=== PATIENT | female | born 1955 | race Caucasian/White ===

== ENCOUNTER 2021-11-28 07:18 | Outpatient (CLI) | payer MEDICARE, OTHER, SELFPAY | END 2021-11-28 07:19 | disposition home or self-care (01) | LOC: RAD 07:19 | PROVIDERS: PCP Family Medicine; Visit Provider Family Medicine | DX: M54.16 Radiculopathy, lumbar region (principal); M51.36 Other intervertebral disc degeneration, lumbar region | CPT/HCPCS: 64483; J0702; Q9966 ==

== ENCOUNTER 2022-01-26 10:33 | Day surgery (SDC) | payer MEDICARE, OTHER, SELFPAY ==
[2022-01-26] MEDS: KETOROLAC OPHTH 0.5% 1 DROP EYE-RIGHT ×2 (11:02→11:08)
[2022-01-26] MEDS: TETRACAINE 0.5% OPHTH 1 DROP EYE-RIGHT ×2 (11:02→11:08)
[2022-01-26 11:06] VITALS: BMI 24.1
[2022-01-26] MEDS: TETRACAINE 0.5% OPHTH 2 DROP EYE-RIGHT (11:17)
[2022-01-26] MEDS: BALANCED SALT IRRIG SOLN 15 ML EYE-RIGHT (11:17)
[2022-01-26] MEDS: SODIUM CHLORIDE 0.9 % (FLUSH) 10 ML SYRINGE IVF (11:35)
[2022-01-26 11:37] VITALS: BP 144/81; PULSE 82; RESP 16; TEMP 36.3; O2SAT 95
--- NOTE | 2022-01-26 11:42 | SUR.PREOP ---
The eye drops brought by the patient (Ketorolac and Prednisolone) are examined and I have determined they are labeled by the patient's pharmacy for this patient as prescribed by the surgeon. The bottles are intact, recently obtained and appear to be correct.
[2022-01-26 12:21] VITALS: PULSE 78; RESP 16; TEMP 36.6
--- NOTE | 2022-01-26 12:25 | W.ANESCHARGE ---
Anesthesia Charges Start Date/Time Anesthesia Start Date: 01/26/22 Anesthesia Start Time: 11:49 Stop Date/Time Anesthesia Stop Date: 01/26/22 Anesthesia Stop Time: 12:25 Summary Emergency: No
--- NOTE | 2022-01-26 12:28 | PM.PROC ---
Procedure Note Date Seen: 01/26/22 Will [facility] bill your pro fee for this procedure?: Yes Procedure Description: SURGEON: Jackie Suazo MD PREOPERATIVE DIAGNOSIS: Nuclear sclerotic cataract, right eye. POSTOPERATIVE DIAGNOSIS: Nuclear sclerotic cataract, right eye. NAME OF OPERATION: Phacoemulsification of cataract with posterior chamber intraocular lens implantation in the right eye. ANESTHESIA: Topical. ESTIMATED BLOOD LOSS: Less than 2 cc. COMPLICATIONS: None. PATHOLOGY SPECIMEN: None. INDICATIONS: See consult note for details. The risks, benefits and alternatives of the procedure were explained to the patient, who elected to proceed and signed informed consent to do so. PROCEDURE: The patient was brought to the pre-holding area where the right eye was identified as the operative eye. I placed my initials above this eye. The patient received eye drops consisting of 0.5% tetracaine, 1% tropicamide, 10% phenylephrine, and 0.5% ketorolac. The patient was then brought to the operating room where the right eye was again identified as the operative eye. The eye was prepped with Betadine and draped in the usual sterile ophthalmic fashion. A #15 super-sharp blade was used to create a paracentesis site. 1% non-preserved intracameral lidocaine was injected into the anterior chamber. Endocoat was injected into the anterior chamber. A 2.4 mm keratome was used to create a three-plane self-sealing incision 1 mm anterior to the temporal limbus. A cystotome was used to create an anterior capsular leaflet. The Utrata forceps were used to extend this to form a continuous curvilinear capsulorrhexis. Hydrodissection was performed. The cataract was removed with phacoemulsification using the tnbbgy-[id number]-mbaxzdl technique. The irrigation and aspiration tip was used to remove the remaining cortex. Healon was injected into the capsular bag. An TAQUERIA ZCB00 intraocular lens of 18.5 diopters was injected into the capsular bag. The irrigation and aspiration tip was used to remove the remaining viscoelastic. Balanced salt solution on a cannula was used to hydrate the wound, and the wound was found to be watertight. The pupil was noted to be round. DISPOSITION: The patient was taken to the recovery room and discharged to home in stable condition. The patient was instructed to call me or go to the emergency department with any sudden change, including dramatic loss of vision, severe pain in the eye or eyebrow region, nausea, or vomiting. The patient will follow up in the clinic tomorrow morning. Surgeon: Jackie Suazo MD
--- NOTE | 2022-01-26 12:40 | W.ANESCHARGE ---
Anesthesia Charges Start Date/Time Anesthesia Start Date: 01/26/22 Anesthesia Start Time: 11:49 Stop Date/Time Anesthesia Stop Date: 01/26/22 Anesthesia Stop Time: 12:25 Summary Emergency: No
== END 2022-01-26 13:00 | disposition home or self-care (01) ==
PROVIDERS: PCP Family Medicine; Visit Provider Ophthalmology
PROC: (CPT 66984; principal; 2022-01-26 11:00)
DX: H25.11 Age-related nuclear cataract, right eye (principal)
CPT/HCPCS: 66984; 00142; A9270; J2250; J3010; V2632

== ENCOUNTER 2022-02-07 10:21 | Day surgery (SDC) | payer MEDICARE, OTHER, SELFPAY ==
[2022-02-07 10:30] VITALS: BP 136/71; PULSE 85; RESP 16; TEMP 36.6; O2SAT 95; BMI 24.1
[2022-02-07] MEDS: KETOROLAC OPHTH 0.5% 1 DROP EYE-LEFT ×2 (10:45→10:54)
[2022-02-07] MEDS: TETRACAINE 0.5% OPHTH 1 DROP EYE-LEFT ×2 (10:45→10:55)
[2022-02-07] MEDS: SODIUM CHLORIDE 0.9 % (FLUSH) 10 ML SYRINGE IVF (10:55)
[2022-02-07] MEDS: ETHYL CHLORIDE 1 APPLICATION 1 APPLIC TOPICAL (10:55)
--- NOTE | 2022-02-07 11:11 | SUR.PREOP ---
1031: The eye drops brought by the patient (Ketorolac and Prednisolone) are examined and I have determined they are labeled by the patient's pharmacy for this patient as prescribed by the surgeon. The bottles are intact, recently obtained and appear to be correct.
[2022-02-07] MEDS: TETRACAINE 0.5% OPHTH 2 DROP EYE-LEFT (11:32)
[2022-02-07] MEDS: BALANCED SALT IRRIG SOLN 15 ML EYE-LEFT (11:36)
--- NOTE | 2022-02-07 12:00 | W.ANESCHARGE ---
Anesthesia Charges Start Date/Time Anesthesia Start Date: 02/07/22 Anesthesia Start Time: 11:28 Stop Date/Time Anesthesia Stop Date: 02/07/22 Anesthesia Stop Time: 12:00 Summary Emergency: No
[2022-02-07 12:06] VITALS: BP 140/79; PULSE 82; RESP 16; TEMP 36.1; O2SAT 93
--- NOTE | 2022-02-07 13:39 | PM.PROC ---
Procedure Note Date Seen: 02/07/22 Will [facility] bill your pro fee for this procedure?: Yes Procedure Description: SURGEON: Jackie Suazo MD PREOPERATIVE DIAGNOSIS: Nuclear sclerotic cataract, left eye. POSTOPERATIVE DIAGNOSIS: Nuclear sclerotic cataract, left eye. NAME OF OPERATION: Phacoemulsification of cataract with posterior chamber intraocular lens implantation in the left eye. ANESTHESIA: Topical. ESTIMATED BLOOD LOSS: Less than 2 cc. COMPLICATIONS: None. PATHOLOGY SPECIMEN: None. INDICATIONS: See consult note for details. The risks, benefits and alternatives of the procedure were explained to the patient, who elected to proceed and signed informed consent to do so. PROCEDURE: The patient was brought to the pre-holding area where the left eye was identified as the operative eye. I placed my initials above this eye. The patient received eye drops consisting of 0.5% tetracaine, 1% tropicamide, 10% phenylephrine, and 0.5% ketorolac. The patient was then brought to the operating room where the left eye was again identified as the operative eye. The eye was prepped with Betadine and draped in the usual sterile ophthalmic fashion. A #15 super-sharp blade was used to create a paracentesis site. 1% non-preserved intracameral lidocaine was injected into the anterior chamber. Endocoat was injected into the anterior chamber. A 2.4 mm keratome was used to create a three-plane self-sealing incision 1 mm anterior to the temporal limbus. A cystotome was used to create an anterior capsular leaflet. The Utrata forceps were used to extend this to form a continuous curvilinear capsulorrhexis. Hydrodissection was performed. The cataract was removed with phacoemulsification using the ekvbjn-yji-obpukvb technique. The irrigation and aspiration tip was used to remove the remaining cortex. Healon was injected into the capsular bag. An TAQUERIA ZCB00 intraocular lens of 19.5 diopters was injected into the capsular bag. The irrigation and aspiration tip was used to remove the remaining viscoelastic. Balanced salt solution on a cannula was used to hydrate the wound, and the wound was found to be watertight. The pupil was noted to be round. DISPOSITION: The patient was taken to the recovery room and discharged to home in stable condition. The patient was instructed to call me or go to the emergency department with any sudden change, including dramatic loss of vision, severe pain in the eye or eyebrow region, nausea, or vomiting. The patient will follow up in the clinic tomorrow morning. Surgeon: Jackie Suazo MD
== END 2022-02-07 12:15 | disposition home or self-care (01) ==
LOC: OR 10:22
PROVIDERS: PCP Family Medicine; Visit Provider Ophthalmology
PROC: (CPT 66984; principal; 2022-02-07 10:30)
DX: H25.12 Age-related nuclear cataract, left eye (principal)
CPT/HCPCS: 66984; 00142; A9270; J2250; J3010; V2632

== ENCOUNTER 2022-03-20 12:57 | Outpatient (CLI) | payer MEDICARE, OTHER, SELFPAY | END 2022-03-20 12:58 | disposition home or self-care (01) | LOC: INJ CL 12:57 | PROVIDERS: PCP Family Medicine; Visit Provider Family Medicine | DX: M54.16 Radiculopathy, lumbar region (principal); M51.36 Other intervertebral disc degeneration, lumbar region | CPT/HCPCS: 64483; J0702; Q9966 ==

== ENCOUNTER 2022-06-19 10:38 | Outpatient (CLI) | payer MEDICARE, OTHER, SELFPAY | END 2022-06-19 10:39 | disposition home or self-care (01) | PROVIDERS: PCP Family Medicine; Visit Provider Family Medicine | DX: M54.16 Radiculopathy, lumbar region (principal); M51.36 Other intervertebral disc degeneration, lumbar region | CPT/HCPCS: 64483; J0702; Q9966 ==

== ENCOUNTER 2022-07-25 10:04 | Day surgery (SDC) | payer MEDICARE, OTHER, SELFPAY ==
[2022-07-25 10:10] VITALS: BP 137/61; PULSE 86; RESP 18; TEMP 36.6; O2SAT 96; BMI 24.0
[2022-07-25] MEDS: SODIUM CHLORIDE 0.9 % (FLUSH) 10 ML SYRINGE IVF (10:10)
--- NOTE | 2022-07-25 10:54 | W.ANESCHARGE ---
Anesthesia Charges Start Date/Time Anesthesia Start Date: 07/25/22 Anesthesia Start Time: 11:43 Stop Date/Time Anesthesia Stop Date: 07/25/22 Anesthesia Stop Time: 12:58
[2022-07-25] MEDS: LACTATED RINGERS 1000 ML 1,000 ML 125 ML IV (11:30)
[2022-07-25] MEDS: TETRACAINE 0.5% OPHTH 2 DROP EYE-BOTH (11:45)
[2022-07-25] MEDS: BUPIVACAINE 0.5 %/EPI 1:200K 30 ML INJECTION (11:48)
[2022-07-25 12:55] VITALS: BP 132/82; PULSE 78; RESP 20; TEMP 36.1; O2SAT 98
--- NOTE | 2022-07-25 12:56 | W.PM.OPTPROC ---
Procedure Note Date of procedure: 07/25/22 Will [facility] bill your pro fee for this procedure?: Yes Procedure Description: SURGEON: Jackie Suazo MD PREOPERATIVE DIAGNOSIS: Dermatochalasis, bilateral upper eyelids. POSTOPERATIVE DIAGNOSIS: Dermatochalasis, bilateral upper eyelids. NAME OF OPERATION: Bilateral upper eyelid blepharoplasty. ANESTHESIA: Local monitored anesthesia care. ESTIMATED BLOOD LOSS: Less than 2 cc. COMPLICATIONS: None. IMPLANTS: None. INDICATIONS: The patient is seen today for bilateral upper eyelid blepharoplasty. The patient complains of upper eyelids interfering with vision. I reviewed the visual granado and facial photographs. Surgery was indicated for functional improvement of vision. The risks, benefits and alternatives were discussed pre-operatively. The risks included pain, infection, bleeding, poor cosmetic result, scarring, asymmetry, need for further treatment including surgery, inability to close lids, dry eyes, decreased vision, loss of vision and loss of eye. The benefits included improvement of symptoms. The alternative was observation and no surgery. All questions were answered to the patient's satisfaction, and the patient elected to proceed with the bilateral upper eyelid blepharoplasty. Informed consent was obtained. PROCEDURE: In a sitting position, the upper eyelid crease was marked with a marking pen, and the pinch technique was used to determine the amount of upper eyelid skin to be excised. A calipers was used to measure for symmetry and to confirm an appropriate amount of remaining skin. The patient was taken to the operating room. 4 cc of anesthetic was injected subcutaneously along the full extent of each upper eyelid. This anesthetic was made with 1:1 of 2% lidocaine with epinephrine and 0.5% bupivacaine. Both eyes were prepped and draped in the usual sterile ophthalmic fashion. The following was performed on both the right and left upper eyelid: A #15 blade was used to incise the skin. Bishops and Eugene scissors were used to excise the skin and orbicularis muscle. Handheld cautery was used to achieve hemostasis. The eyelids were examined for symmetry. The skin was closed with a running 6-0 nylon suture. Erythromycin ointment was applied to the wounds. The patient tolerated the procedure well. DISPOSITION: The patient was sent to the recovery room and discharged to home in stable condition. The patient was given my postoperative instructions handout. The patient was told to ice as directed. The patient will apply erythromycin ophthalmic ointment to the eyelids three times a day until the sutures are removed, then for another three days. The patient will follow up in one week for suture removal or sooner as needed. The patient was instructed to call me or go to the emergency department with any sudden change, including dramatic loss of vision, excessive bleeding, redness or discharge from the incisions, or severe pain in the eye. Surgeon: Jackie Suazo MD
--- NOTE | 2022-07-25 12:59 | W.ANESCHARGE ---
Anesthesia Charges Start Date/Time Anesthesia Start Date: 07/25/22 Anesthesia Start Time: 11:43 Stop Date/Time Anesthesia Stop Date: 07/25/22 Anesthesia Stop Time: 12:58
[2022-07-25 13:08] VITALS: BP 127/72; PULSE 75; RESP 20; TEMP 36.1; O2SAT 97
[2022-07-25 13:38] VITALS: BP 146/78; PULSE 84; RESP 20; TEMP 36.1; O2SAT 95
== END 2022-07-25 13:47 | disposition home or self-care (01) ==
PROVIDERS: PCP Family Medicine; Visit Provider Ophthalmology
PROC: (CPT 15823; principal; 2022-07-25 10:00)
DX: H02.831 Dermatochalasis of right upper eyelid (principal); H02.834 Dermatochalasis of left upper eyelid; H53.8 Other visual disturbances; H53.40 Unspecified visual field defects
CPT/HCPCS: 15823; 00103; A9270; J2250; J2704; J3010; J3490; J7120

== ENCOUNTER 2022-11-13 09:53 | Outpatient (CLI) | payer MEDICARE, OTHER, SELFPAY | END 2022-11-13 09:54 | disposition home or self-care (01) | LOC: INJ CL 09:54 | PROVIDERS: PCP Family Medicine; Visit Provider Family Medicine | DX: M54.16 Radiculopathy, lumbar region (principal); M51.36 Other intervertebral disc degeneration, lumbar region | CPT/HCPCS: 64483; J1100; Q9966 ==

== ENCOUNTER 2023-08-20 10:36 | Outpatient (CLI) | payer MEDICARE, OTHER, SELFPAY | END 2023-08-20 10:37 | disposition home or self-care (01) | LOC: INJ CL 10:37 | PROVIDERS: PCP Family Medicine; Visit Provider Family Medicine | DX: M53.3 Sacrococcygeal disorders, not elsewhere classified (principal) | CPT/HCPCS: 27096; J0702; Q9966 ==